=== PATIENT | male | born 1955 | race Caucasian/White ===

== ENCOUNTER → 2017-09-11 | Outpatient (CLI) | payer BC ==
[~2017-09-11] MED LIST: ADV25050 INH; ALBU8.5H3 INH; ALBU8.5H5 IH; HYDR-3720 PO; TIOT18CA IH
--- NOTE | 2017-09-11 18:47 | RADRPT ---
PROCEDURE: US renal. CLINICAL INDICATION: Right flank pain. Back pain. TECHNIQUE: Weber scale and color Doppler imaging of the kidneys and bladder. COMPARISON: None Available. FINDINGS: Right kidney: 10.7 cm in length. Normal in echogenicity. No nephrolithiasis, hydronephrosis, or jolie al mass. Left kidney: 11.1 cm in length. Normal in echogenicity. No nephrolithiasis, hydronephrosis, or emmanuel l mass. Bladder: Distended and unremarkable. IMPRESSION: 1. Unremarkable renal ultrasound. RPTAT: HLBP .Vikash Paredes MD, Date Time Electronically viewed and signed by .Vikash Paredes MD, on 09/11/2017 18:47 .P/
== END | disposition home or self-care (01) ==
LOC: U/S 14:42
PROVIDERS: ATTEND Internal Medicine
DX: N20.0 Calculus of kidney (principal)
CPT/HCPCS: 76775